=== PATIENT | female | born 1955 | race Caucasian/White ===

== ENCOUNTER 2016-05-11 10:05 | Inpatient (IN) | payer BC ==
[2016-05-11] MEDS ORDERED: ADENOSINE 6 MG/2 ML VIAL IVPUSH ONE ×7 (10:21→10:57)
[2016-05-11] MEDS ORDERED: NITROGLYCERIN 25MG/D5W 250ML 250 ML IVPB ONE (10:23)
[2016-05-11] MEDS ORDERED: ASPIRIN 81 MG CHEWABLE TABLETS ONE (10:23)
--- NOTE | 2016-05-11 10:23 | PDOC ---
History of Present Illness <Jone Mina - Last Filed: 05/11/16 12:48> - General History Source: Patient Exam Limitations: No Limitations - History of Present Illness Initial Comments: 05/11/16 11:07 The patient is a 60 year old female with a significant past medical history of hypothyroid, MVP and PSVT and daily smoker who presents to the ED via EMS with difficulty breathing. As per EMS 2 g of magnesium and solumedrol was administered by squad. Patient was placed on BIPAP machine upon arrival to the ED. Patient also reports chest pain, burning and discomfort for 3 hours last night localized to left substernal. She denies taking any aspirin. PCP - Dr. Wilkinson Medical Orderly - Dr. Perry SH: daily smoker <Prabha Cotto - Last Filed: 05/11/16 17:53> - General Chief Complaint: Shortness of Breath Stated Complaint: SHORTNESS OF BREATH Time Seen by Provider: 05/11/16 10:23 Past History - Past Medical History Thyroid Disease: Yes (hypothyroid) - Psycho/Social/Smoking Cessation Hx Anxiety: No Suicidal Ideation: No Smoking History: Never smoked Have you smoked in the past 12 months: No Number of Cigarettes Smoked Daily: 10 Information on smoking cessation initiated: No Hx Alcohol Use: No Drug/Substance Use Hx: No Substance Use Type: None <Jone Mina - Last Filed: 05/11/16 12:48> <Prabha Cotto - Last Filed: 05/11/16 17:53> - Past Medical History Allergies/Adverse Reactions: Allergies Allergy/AdvReac Type Severity Reaction Status Date / Time amoxicillin trihydrate Allergy Verified 05/11/16 10:20 [From Augmentin] potassium clavulanate Allergy Verified 05/11/16 10:20 [From Augmentin] Home Medications: Ambulatory Orders NK [No Known Home Medication] 05/11/16 Review of Systems - Review of Systems Able to Perform ROS?: Yes Comments:: 05/11/16 11:08 GENERAL/CONSTITUTIONAL: No fever or chills. No weakness. HEAD, EYES, EARS, NOSE AND THROAT: No change in vision. No ear pain or discharge. No sore throat. CARDIOVASCULAR: No chest pain. RESPIRATORY: +SOB. No cough, wheezing, or hemoptysis. GASTROINTESTINAL: No nausea, vomiting, diarrhea or constipation. GENITOURINARY: No dysuria, frequency, or change in urination. MUSCULOSKELETAL: No joint or muscle swelling or pain. No neck or back pain. SKIN: No rash NEUROLOGIC: No headache, vertigo, loss of consciousness, or change in strength/ sensation. ENDOCRINE: No increased thirst. No abnormal weight change. HEMATOLOGIC/LYMPHATIC: No anemia, easy bleeding, or history of blood clots. ALLERGIC/IMMUNOLOGIC: No hives or skin allergy. <Prabha Cotto - Last Filed: 05/11/16 17:53> *Physical Exam - Vital Signs Last Vital Signs Temp Pulse Resp BP Pulse Ox 153 H 36 H 113/61 82 L 05/11/16 10:05 05/11/16 10:05 05/11/16 10:05 05/11/16 10:05 <Jone Mina - Last Filed: 05/11/16 12:48> - Vital Signs Last Vital Signs Temp Pulse Resp BP Pulse Ox 153 H 36 H 113/61 100 05/11/16 10:05 05/11/16 10:05 05/11/16 10:05 05/11/16 10:29 - Physical Exam Comments: 05/11/16 11:08 GENERAL: Awake, alert, and fully oriented, in no acute distress HEAD: No signs of trauma EYES: PERRLA, EOMI, sclera anicteric, conjunctiva clear ENT: Auricles normal inspection, hearing grossly normal, nares patent, oropharynx clear without exudates. Moist mucosa NECK: Normal ROM, supple, no lymphadenopathy, JVD, or masses LUNGS: Breath sounds equal, clear to auscultation bilaterally. No wheezes, and no crackles HEART: Regular rate and rhythm, normal S1 and S2, no murmurs, rubs or gallops ABDOMEN: +Obese. Soft, nontender, normoactive bowel sounds. No guarding, no rebound. No masses EXTREMITIES: Normal range of motion, no edema. No clubbing or cyanosis. No cords, erythema, or tenderness NEUROLOGICAL: Cranial nerves II through XII grossly intact. Normal speech. SKIN: Warm, Dry, normal turgor, no rashes or lesions noted. <Prabha Cotto - Last Filed: 05/11/16 17:53> Heart Score/ECG Review #2 05/11/16 10:[address] Mina Impression: atrial fibrillation ST depression, consider subendocardial injury Vent rate 79 bpm #3 05/11/16 10:[address] Mina Impression: atrial fibrillation with rapid ventricular response Marked ST abnormality, possible anteroseptal subendocardial injury Prolonged QT Vent rate 120 bpm #4 05/11/16 10:45 EKG was reviewed by Dr. Mina Impression: sinus tachycardia Marked ST abnormality, possible anteroseptal subendocardial injury Vent rate 105 bpm #1 05/11/16 10:[address] Mina Impression: supraventricular tachycardia with premature ventricular complexes or fusion complexes Marked ST abnormality, possible anterior subendocardial injury Vent rate 151 bpm #5 05/11/16 12:02 EKG was reviewed by Dr. Mina Impression: Sinus rhythm with frequent premature ventricular complexes Possible left atrial enlargement Marked ST abnormality, possible anteroseptal subendocardial injury Prolonged QT Vent rate 94 bpm - ECG Intrepretation Comment:: 05/11/16 10:[address] Mina Impression: supraventricular tachycardia with premature ventricular complexes or fusion complexes Marked ST abnormality, possible anterior subendocardial injury Vent rate 151 bpm <Prabha Cotto - Last Filed: 05/11/16 17:53> ED Treatment Course - LABORATORY CBC & Chemistry Diagram: 05/11/16 10:34 05/11/16 10:33 <Jone Mina - Last Filed: 05/11/16 12:48> - LABORATORY CBC & Chemistry Diagram: 05/11/16 14:47 05/11/16 10:33 - ADDITIONAL ORDERS Additional order review: 05/11/16 10:34 RBC 5.15 MCV 93.1 MCHC 30.9 L RDW 14.9 MPV 8.0 Neutrophils % 79.8 Lymphocytes % 16.1 Monocytes % 3.7 L Eosinophils % 0.1 Basophils % 0.3 <Prabha Cotto - Last Filed: 05/11/16 17:53> Medical Decision Making - Critical Care Time Total Critical Care Time (minutes): 30 Critical Care Statement: The care of this patient involved high complexity decision making to prevent further life threatening deterioration of the patient 's condition and/or to evalute & treat vital organ system(s) failure or risk of failure. - Medical Decision Making 05/11/16 11:09 60 year old female with pmhx of hypothyroid, mitral valve prolapse and daily smoker who presents to the ED with difficulty breathing today and chest burning for few hours last night. EMS administered 2 g of magnesium and solumedrol. Patient was placed on BIPAP and will receive adenosine. 6mg, 12mg, 18mg of Adenosine was given IV push. Patient will receive 20 mg of cardizem. Patient given 4 ASA and started on IV NTG Will order CXR, labs, EKG and UA. EKG shows sinus tachycardia s/p cardizem. Dr. Paez, prevention rn physician, was consulted on the case and saw patient while in ED. 05/11/16 11:26 A call was placed to Dr. Wilkinson. Awaiting a call back from Dr. Castillo prevention rn doctor for the group. 05/11/16 11:28 The case was discussed with Dr. Castillo. Agreed that the patient needs ICU admission. 05/11/16 11:33 A call will be placed to Dr. Hernandez for ICU admission for the patient. 05/11/16 11:36 A call was placed to Dr. Hernandez. 05/11/16 12:02 Second page was placed to Dr. Hernandez. 05/11/16 12:[address] Hernandez, after placing a call to his cellphone, who will accept the patient to ICU. 05/11/16 12:38 Patient reports intermittent pain while in the ED. 05/11/16 17:38 Dr. Paez is thinking that due to her second troponin being in 100s patient needs to be transferred to labor relations or personnel negotiator to r/o acute posterior. Found a bed at [facility] that the patient will be transferred. 05/11/16 17:50 Case was discussed with Dr. Castillo who is aware of the transfer. 05/11/16 17:52 Accepting doctor at [facility] is Dr. Joana Whatley as per Dr. Paez. He noted that [facility] should be called by nursing at [phone] to arrange transfer and transportation must be arranged as well on our end. <Prabha Cotto - Last Filed: 05/11/16 17:53> *DC/Admit/Observation/Transfer - Discharge Dispostion Admit: Yes - Attestations Physician Attestion: 05/11/16 10:23 I, Dr. Jone Mina, attest that this document has been prepared under my direction and personally reviewed by me in its entirety. I further attest, that it accurately reflects all work, treatment, procedures and medical decision -making performed by me. <Jone Mina - Last Filed: 05/11/16 12:48> - Attestations Scribe Attestion: 05/11/16 11:11 Documentation prepared by PATRICIA Lema, acting as medical secretary teacher for Jone Mina MD/. <Prabha Cotto - Last Filed: 05/11/16 17:53> Diagnosis at time of Disposition: Acute coronary insufficiency syndrome, Myocardial ischemia, ACS (acute coronary syndrome), MVP (mitral valve prolapse), PSVT (paroxysmal supraventricular tachycardia) Myocardial infarction Qualifiers: Myocardial infarction ST status: non-ST elevation myocardial infarction Qualified Code(s): I21.4 - Non-ST elevation (NSTEMI) myocardial infarction Hypothyroidism Qualifiers: Hypothyroidism type: other Qualified Code(s): E03.8 - Other specified hypothyroidism HTN (hypertension) Qualifiers: Hypertension type: essential hypertension Qualified Code(s): I10 - Essential ( primary) hypertension - Discharge Dispostion Condition at time of disposition: Guarded
[2016-05-11] MEDS ORDERED: MAGNESIUM SULF 50% (8.12 MEQ/2 ML-1 GM VIAL) ONE (10:28)
[2016-05-11] MEDS ORDERED: ALBUTEROL SO4 2.5/IPRATROPIUM 0.5 INH SOL 3 ML VIAL.NEB. NEB ONE (10:29)
[2016-05-11] MEDS ORDERED: methylPREDNISolone NA SUCC 125 MG/2 ML VIAL ONE (10:29)
[2016-05-11] MEDS ORDERED: dilTIAZem HCL 50 MG/10 ML - 10 ML VIAL ONE (10:41)
[2016-05-11 10:49] LABS: BASOPHIL 0.3 % (0-2.0); EOSINOPHIL 0.1 % (0-4.5); MCH 28.8 pg (25.7-33.7); MCHC 30.9 g/dl (32.0-36.0); MEAN CELL VOLUME 93.1 fl (80-96); NEUTROPHILS 79.8 % (42.8-82.8); PLATELET COUNT 207 K/MM3 (134-434); RDW 14.9 % (11.6-15.6); WHITE BLOOD COUNT 12.7 K/mm3 (4.0-10.0)
[2016-05-11] MEDS ORDERED: dilTIAZem HCL 50 MG/10 ML - 10 ML VIAL IVPUSH ONE (10:59)
[2016-05-11] MEDS ORDERED: ASPIRIN 81 MG CHEWABLE TABLETS PO ONE (11:01)
--- NOTE | 2016-05-11 11:05 | CON.CARD ---
Consult Consult Specialty:: Cardiology Referred by:: Dr. Mina (ER) Reason for Consultation:: Cardiac evaluation - History of Present Illness Chief Complaint: SVT and chest pain/shortness of breath - suggests ACS History of Present Illness: Patient is a 60 year old female with underlying history of MVP and PSVT in the past (had seen Dr. Maza years ago) now presents with shortness of breath which started early this morning and chest discomfort in left substernum. ECG showed narrow complex tachycardia suggestive of SVT. She was given Adenosine 6 mg-12mg-18 mg and current ECG appears to be sinus tachycardia with ST depression in anterior leads. Patient was also given 4 ASA in the ER and was started on IV NTG. She was also given Cardizem IVP. She does not take any medications at home. Currently she was placed on CPAP in the ER. She denies nausea or vomiting, but complains of mild sweating. She denies fever or chills. She denies headache or lightheadedness. She complains of vague left sided chest discomfort still. Cardiology consultation was called for further evaluation. - History Source History Provided By: Patient Limitations to Obtaining History: No Limitations - Past Medical History Cardio/Vascular: Yes: HTN, Other (PSVT, MVP) Pulmonary: No: Asthma, COPD Endocrine: Yes: Hypothyroidism - Past Surgical History Past Surgical History: Yes: - Alcohol/Substance Use Hx Alcohol Use: Yes (Social) - Smoking History Smoking history: Current every day smoker Have you smoked in the past 12 months: Yes Aproximately how many cigarettes per day: 10 Home Medications - Allergies Allergies/Adverse Reactions: Allergies Allergy/AdvReac Type Severity Reaction Status Date / Time amoxicillin trihydrate Allergy Verified 05/11/16 10:20 [From Augmentin] potassium clavulanate Allergy Verified 05/11/16 10:20 [From Augmentin] - Home Medications Home Medications: Ambulatory Orders NK [No Known Home Medication] 05/11/16 Family Disease History - Family Disease History Other Family History: History of hypothyroidsim Review of Systems - Review of Systems Constitutional: denies: Chills, Fever Cardiovascular: reports: Chest Pain, Palpitations, Shortness of Breath Respiratory: reports: SOB. denies: Cough, Hemoptysis, Orthopnea, PND Gastrointestinal: denies: Abdominal Pain, Constipation, Diarrhea, Melena, Nausea , Rectal Bleeding, Vomiting Neurological: denies: Dizziness, Headache, Seizure, Syncope Vital Signs: Vital Signs Temperature Pulse Rate 153 H 05/11/16 10:05 Respiratory Rate 36 H 05/11/16 10:05 Blood Pressure 113/61 05/11/16 10:05 O2 Sat by Pulse Oximetry (%) 100 05/11/16 10:29 Neck: Yes: Supple Respiratory: Yes: Diminished Gastrointestinal: Yes: Normal Bowel Sounds, Soft. No: Tenderness Cardiovascular: Yes: Regular Rate and Rhythm, Tachycardia JVD: No Carotid Bruit: No PMI: Non-Displaced Heart Sounds: Yes: S1, S2 Edema: No Imaging - Results EKG: Report Reviewed Problem List - Problems (1) PSVT (paroxysmal supraventricular tachycardia) Code(s): I47.1 - SUPRAVENTRICULAR TACHYCARDIA (2) ACS (acute coronary syndrome) Code(s): I24.9 - ACUTE ISCHEMIC HEART DISEASE, UNSPECIFIED (3) HTN (hypertension) Code(s): I10 - ESSENTIAL (PRIMARY) HYPERTENSION Qualifiers: Hypertension type: essential hypertension Qualified Code(s): I10 - Essential (primary) hypertension (4) Hypothyroidism Code(s): E03.9 - HYPOTHYROIDISM, UNSPECIFIED Qualifiers: Hypothyroidism type: other Qualified Code(s): E03.8 - Other specified hypothyroidism; E06.3 - Autoimmune thyroiditis (5) MVP (mitral valve prolapse) Code(s): I34.1 - NONRHEUMATIC MITRAL (VALVE) PROLAPSE (6) NSTEMI (non-ST elevated myocardial infarction) Code(s): I21.4 - NON-ST ELEVATION (NSTEMI) MYOCARDIAL INFARCTION Assessment/Plan 1. Narrow complex tachycardia c/w PSVT --> sinus tachycardia after Adenosine 2. ECG abnormality suggests subendocardial ischemia - ACS/NSTEMI 3. History of HTN - currently normotensive 4. History of hypothyroidism PLAN: 1. Add Metoprolol 25 mg BID and uptitrate as needed 2. ASA + Plavix 3. Start unfractionated Heparin drip 4. NTG drip 5. Add statin and check lipid panel. Give Lipitor 80 mg 6. Transthoracic echocardiography to assess LV and valvular function 7. Further cardiac work up including early invasive approach with cardiac catheterization/coronary angiography. Trend cardiac enzymes. Blood work pending. Further plans are to follow. Guarded. Admit to ICU Sang H. Jeannine MD
[2016-05-11 11:07] LABS: ALBUMIN 3.3 g/dl (3.4-5.0); BILIRUBIN,TOTAL 0.5 mg/dL (0.2-1.0); CALCIUM 8.9 mg/dL (8.5-10.1); CREATININE 1.6 mg/dL (0.55-1.02); TOT PROT 7.2 g/dl (6.4-8.2)
[2016-05-11 11:13] LABS: INR 1.11 (0.82-1.09); PROTHROMBIN TIME (PATIENT) 12.2 SEC (9.98-11.88)
[2016-05-11] MEDS ORDERED: HEPARIN NA (PORCINE) 5,000 UNITS/ML 1ML VIAL IVPUSH PRN ×2 (11:23)
[2016-05-11] MEDS ORDERED: ATORVASTATIN CA 80 MG TABLET (FP) PO ONE (11:24)
[2016-05-11] MEDS ORDERED: CLOPIDOGREL BISULFATE 300 MG TABLET PO ONE (11:26)
[2016-05-11] MEDS ORDERED: METOPROLOL TARTRATE 25 MG TABLET (FP) PO SCH (11:30)
[2016-05-11] MEDS ORDERED: HEPARIN INFUSION - 500 ML IVPB SCH (11:30)
[2016-05-11] MEDS ORDERED: NITROGLYCERIN 25MG/D5W 250ML 250 ML IVPB SCH (11:45)
[2016-05-11 11:47] LABS: TROPONIN I 69.95 ng/ml (0.00-0.05)
[2016-05-11 11:57] VITALS: TEMP 99
[2016-05-11] MEDS ORDERED: morphine CARPU-JECT 4 MG/1 ML DISP.SYRIN ONE (12:01)
[2016-05-11] MEDS ORDERED: ONDANSETRON 4 MG/2 ML VIAL IVPB ONE (12:01)
[2016-05-11] MEDS ORDERED: morphine CARPU-JECT 4 MG/1 ML DISP.SYRIN IVPUSH ONE (12:01)
--- NOTE | 2016-05-11 13:19 | HP ---
Admitting History and Physical - Admission Chief Complaint: shortness of breath History of Present Illness: 60 yo female presents to hospital with shortness of breath. Notes chest pain as well (central, substernal), which began today. Was in usual state of health until recent gastroenteritis and recent sinus congestion. Notes history of hypothyroidism, but had not had a doctor checkup or blood test for years. IN ED notes to be in SVT, which slowed down with adenosine and now sinus tachycardic. Started on CPAp and breathing a little more comfortably now. troponin elevated at 69 (elevated CPK as well) and seen by cardio -now on ASA, B -patrick, oxygen, nitro drip and heparin drip -likely to have cardiac cath tomorrow for ACS History Source: Patient, Family Member Limitations to Obtaining History: No Limitations - Past Medical History Cardiovascular: Yes: HTN, Other (PSVT, MVP) Pulmonary: No: Asthma, COPD Endocrine: Yes: Hypothyroidism - Past Surgical History Past Surgical History: Yes: - Smoking History Smoking history: Current every day smoker Have you smoked in the past 12 months: Yes Aproximately how many cigarettes per day: 10 - Alcohol/Substance Use Hx Alcohol Use: No - Social 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[employer], previously worked here at ED) Other Social History: 4 children Home Medications - Allergies Allergies/Adverse Reactions: Allergies Allergy/AdvReac Type Severity Reaction Status Date / Time amoxicillin trihydrate Allergy Verified 05/11/16 10:20 [From Augmentin] potassium clavulanate Allergy Verified 05/11/16 10:20 [From Augmentin] Family Disease History - Family Disease History Family Disease History: Diabetes: Grandparent, Mother, Heart Disease: Grandparent Other Family History: History of hypothyroidsim Review of Systems - Review of Systems Constitutional: denies: Loss of Appetite, Malaise, Weakness Eyes: reports: No Symptoms HENT: denies: Epistaxis Neck: denies: Decreased ROM, Stiffness Gastrointestinal: denies: Abdominal Pain, Diarrhea, Nausea, Vomiting Genitourinary: denies: Burning, Discharge, Dysuria Physical Examination Vital Signs: Vital Signs Temperature 99 F 05/11/16 11:56 Pulse Rate 153 H 05/11/16 10:05 Respiratory Rate 36 H 05/11/16 10:05 Blood Pressure 113/61 05/11/16 10:05 O2 Sat by Pulse Oximetry (%) 100 05/11/16 10:29 Constitutional: Yes: No Distress (on CPAP) HENT: Yes: Atraumatic, Normocephalic Neck: Yes: Supple, Trachea Midline Cardiovascular: Yes: Regular Rate and Rhythm, S1, S2. No: Murmur Respiratory: Yes: Regular, Rales (b/l bases) Gastrointestinal: Yes: Normal Bowel Sounds, Soft. No: Distention, Tenderness Edema: No Neurological: Yes: Alert, Oriented Labs: CBC, BMP 05/11/16 10:34 05/11/16 10:33 Problem List - Problems (1) ACS (acute coronary syndrome) Assessment/Plan: -started on ASA, B-patrick, Plavix, heparin, O2, nitro drip -planning for cardiac cath -cardio following Code(s): I24.9 - ACUTE ISCHEMIC HEART DISEASE, UNSPECIFIED (2) Respiratory failure Assessment/Plan: -CPAP -on nitro drip as due to acute CHF Code(s): J96.90 - RESPIRATORY FAILURE, UNSP, UNSP W HYPOXIA OR HYPERCAPNIA (3) PSVT (paroxysmal supraventricular tachycardia) Assessment/Plan: -likely due to ACS -now on metoprolol Code(s): I47.1 - SUPRAVENTRICULAR TACHYCARDIA (4) Hypothyroidism Assessment/Plan: -recheck TSH (had previously been on synthroid, but has not taken in years) Code(s): E03.9 - HYPOTHYROIDISM, UNSPECIFIED Qualifiers: Hypothyroidism type: other Qualified Code(s): E03.8 - Other specified hypothyroidism; E06.3 - Autoimmune thyroiditis (5) Diabetes mellitus Assessment/Plan: -new diagnosis -check BGM and start SQ insulin for now Code(s): E11.9 - TYPE 2 DIABETES MELLITUS WITHOUT COMPLICATIONS Qualifiers: Diabetes mellitus type: type 2 Diabetes mellitus complication status: with hyperglycemia
[2016-05-11] MEDS ORDERED: INSULIN SLIDING SCALE (NOVOLOG) 1 VIAL SQ SCH (13:30)
[2016-05-11 15:08] LABS: MCH 29.2 pg (25.7-33.7); MCHC 33.1 g/dl (32.0-36.0); MEAN CELL VOLUME 88.2 fl (80-96); MEAN PLT VOLUME 7.7 fl (7.5-11.1); PLATELET COUNT 183 K/MM3 (134-434)
[2016-05-11 15:58] VITALS: BMI 31.3
[2016-05-11 16:08] LABS: PLATELET ESTIMATE ADEQUATE (NORMAL)
[2016-05-11 19:09] VITALS: BP 107/77; PULSE 77
[2016-05-11] MEDS ORDERED: MUPIROCIN 2% TOPICAL OINTMENT FOR DECOLONIZATION NS SCH (22:00)
[2016-05-11] MEDS ORDERED: CHLORHEXIDINE GLUCONATE 4% CLEANSER FOR DECOLONIZATION TP SCH (22:00)
--- NOTE | 2016-05-12 00:35 | EKG ---
Test Reason : Blood Pressure : / mmHG Vent. Rate : 094 BPM Atrial Rate : 094 BPM P-R Int : 176 ms QRS Dur : 096 ms QT Int : 454 ms P-R-T Axes : 073 062 086 degrees QTc Int : 567 ms SINUS RHYTHM WITH PREMATURE VENTRICULAR OR ABERRANTLY CONDUCTED COMPLEXES PROBABLE ACUTE POSTERIOR INFARCT POSSIBLE LEFT ATRIAL ENLARGEMENT MARKED ST ABNORMALITY, POSSIBLE ANTEROSEPTAL SUBENDOCARDIAL INJURY PROLONGED QT ABNORMAL ECG WHEN COMPARED WITH ECG OF 11-MAY-2016 10:45, ABERRANT COMPLEX IS SEEN ST SEGMENT IS DEPRESSED IN ANTERIOR LEADS - EVOLVING MYOCARDIAL INFARCTION Confirmed by JOSHUA NOONAN MD ([id number]) on 05/12/2016 12:35:32 AM Referred By: Confirmed By:JOSHUA NOONAN MD
--- NOTE | 2016-05-12 00:37 | EKG ---
Test Reason : Blood Pressure : / mmHG Vent. Rate : 105 BPM Atrial Rate : 105 BPM P-R Int : 202 ms QRS Dur : 102 ms QT Int : 288 ms P-R-T Axes : 073 059 108 degrees QTc Int : 380 ms SINUS TACHYCARDIA MARKED ST ABNORMALITY, POSSIBLE ANTEROSEPTAL SUBENDOCARDIAL INJURY CANNOT RULE OUT ACUTE POSTERIOR INFARCT ABNORMAL ECG WHEN COMPARED WITH ECG OF 11-MAY-2016 10:39, SVT NO LONGER SEEN T WAVE VARIATION Confirmed by JOSHUA NOONAN MD ([id number]) on 05/12/2016 12:36:47 AM Referred By: Confirmed By:JOSHUA NOONAN MD
--- NOTE | 2016-05-12 00:38 | EKG ---
Test Reason : Blood Pressure : / mmHG Vent. Rate : 120 BPM Atrial Rate : 125 BPM P-R Int : 000 ms QRS Dur : 102 ms QT Int : 382 ms P-R-T Axes : 000 061 080 degrees QTc Int : 539 ms SVT WITH RAPID VENTRICULAR RESPONSE - INITIALLY SINUS RHYTHM MARKED ST ABNORMALITY, POSSIBLE ANTEROSEPTAL SUBENDOCARDIAL INJURY PROLONGED QT ABNORMAL ECG WHEN COMPARED WITH ECG OF 11-MAY-2016 10:38, VENT. RATE HAS INCREASED BY 41 BPM Confirmed by JOSHUA NOONAN MD ([id number]) on 05/12/2016 12:37:29 AM Referred By: Confirmed By:JOSHUA NOONAN MD
--- NOTE | 2016-05-12 00:39 | EKG ---
Test Reason : Blood Pressure : / mmHG Vent. Rate : 079 BPM Atrial Rate : 110 BPM P-R Int : 000 ms QRS Dur : 100 ms QT Int : 432 ms P-R-T Axes : 000 056 063 degrees QTc Int : 495 ms ATRIAL FIBRILLATION VS. SVT INITIALLY THEN LATER APPEARS TO BE SINUS ST depression, consider subendocardial injury ABNORMAL ECG WHEN COMPARED WITH ECG OF 11-MAY-2016 10:14, VENT. RATE HAS DECREASED BY [address] SEGMENT VARIATION Confirmed by JOSHUA NOONAN MD ([id number]) on 05/12/2016 12:38:36 AM Referred By: Confirmed By:JOSHUA NOONAN MD
--- NOTE | 2016-05-12 00:39 | EKG ---
Test Reason : Blood Pressure : / mmHG Vent. Rate : 151 BPM Atrial Rate : 102 BPM P-R Int : 000 ms QRS Dur : 094 ms QT Int : 336 ms P-R-T Axes : 000 053 097 degrees QTc Int : 532 ms SUPRAVENTRICULAR TACHYCARDIA MARKED ST ABNORMALITY, POSSIBLE ANTERIOR SUBENDOCARDIAL INJURY ABNORMAL ECG WHEN COMPARED WITH ECG OF 28-MAY-2000 15:13, VENT. RATE HAS INCREASED BY [address] NOW DEPRESSED IN INFERIOR LEADS ST NOW DEPRESSED IN ANTERIOR LEADS T WAVE VARIATION Confirmed by JOSHUA NOONAN MD ([id number]) on 05/12/2016 12:39:12 AM Referred By: Confirmed By:JOSHUA NOONAN MD
[2016-05-12] MEDS ORDERED: ASPIRIN 325 MG ENTERIC COATED TABLET (FP) PO SCH (10:00)
== END 2016-05-11 19:10 | disposition short-term general hospital (02) | DRG 280 ==
LOC: JER 10:05 → JERBED 13:09
PROVIDERS: ADMIT Specialist; ATTEND Specialist
DX: I21.4 Non-ST elevation (NSTEMI) myocardial infarction (principal); J96.90 Respiratory failure, unspecified, unspecified whether with hypoxia or hypercapnia; I47.1 Supraventricular tachycardia; I10 Essential (primary) hypertension; J45.909 Unspecified asthma, uncomplicated; J44.9 Chronic obstructive pulmonary disease, unspecified; E03.9 Hypothyroidism, unspecified; F17.210 Nicotine dependence, cigarettes, uncomplicated; I24.9 Acute ischemic heart disease, unspecified; E11.9 Type 2 diabetes mellitus without complications
CPT/HCPCS: 36415; 71010-TC; 80053; 82550; 82553; 83036; 83880; 84443; 84484; 85025; 85379; 85610; 86850; 86900; 86901; 93005; 93010; 99285-25; J1644